=== PATIENT | male | born 1985 ===

== ENCOUNTER 2016-09-17 10:34 | Observation (INO) | payer BC ==
[~2016-09-17] VITALS: Ht 182.9 cm; Wt 79.0 kg
[2016-09-17 10:36] VITALS: BP 125/79; PULSE 92; RESP 20; TEMP 97.9; O2SAT 99
[2016-09-17] MEDS ORDERED: SODIUM CHLOR 0.9% 1000 ML INJ 1,000 ML IV SCH (10:55)
[2016-09-17] MEDS ORDERED: SODIUM CHLORIDE 0.9% FLUSH 10 ML FLUSH IV FLUSH PRN ×2 (11:00→15:30)
--- NOTE | 2016-09-17 11:10 | PD ---
HPI Chief Complaint: Abdominal Pain Time Seen by Provider: 10:55 Travel History International Travel<30 days: No Contact w/Intl Traveler<30days: No Traveled to known affect area: No History of Present Illness HPI This is a 31-year-old male with no significant past medical history, presents today with complaints of abdominal pain 24 hours. The patient reports it started in his epigastric area and now is radiating into his right lower quadrant. He reports significant pain with flexion of his hip. He also reports that the seatbelt was extremely uncomfortable when he was driving and today. He denies any fevers but states that he has had sweats. He also reports nausea with no vomiting. He presents with concerns that he is having an appendicitis. He does give history that his urine is darker and stronger smelling over the last 24 hours. He denies any dysuria. He denies any penile discharge. He denies any testicle pain. There is no reported flank pain. PFSH Past Medical History Medical History: Denies Significant Hx Past Surgical History Oral Surgery: Yes (wisdom teeth removed) Social History Alcohol Use: Yes (occasional) Tobacco Use: No Substance Use: Yes (marijuana, last smoked 1 month ago) Allergies-Medications (Allergen,Severity, Reaction): Coded Allergies: No Known Allergies (Unverified , 09/17/16) Reported Meds & Prescriptions Reported Meds & Active Scripts Active No Active Prescriptions or Reported Medications Review of Systems Except as stated in HPI: all other systems reviewed are Neg General / Constitutional: Positive: Fever, No: Chills HENT: No: Headaches, Neck Pain Cardiovascular: No: Chest Pain or Discomfort, Palpitations Respiratory: No: Cough, Shortness of Breath Gastrointestinal: Positive: Nausea, Abdominal Pain (right lower quadrant), No : Vomiting Genitourinary: Positive: Other (darker urine than normal), No: Frequency, Dysuria Musculoskeletal: No: Myalgias, Weakness Neurologic: No: Weakness, Dizziness, Headache Physical Exam Narrative GENERAL: Well-nourished, well-developed patient. SKIN: Focused skin assessment warm/dry. HEAD: Normocephalic/atraumatic. EYES: No scleral icterus. No injection or drainage. NECK: Supple, trachea midline. CARDIOVASCULAR: Regular rate and rhythm without murmurs, gallops, or rubs. RESPIRATORY: Breath sounds equal bilaterally. No accessory muscle use. GASTROINTESTINAL: Abdomen soft, nondistended. The patient has tenderness to palpation in his right lower quadrant. There is voluntary guarding. No rebound. BACK: Nontender without obvious deformity. No CVA tenderness. NEUROLOGICAL: Awake and alert. Cranial nerves II through XII intact. Motor grossly within normal limits. Five out of 5 muscle strength in all muscle groups. Normal speech. Data Data Last Documented VS Vital Signs Date Time Temp Pulse Resp B/P Pulse Ox O2 Delivery O2 Flow Rate FiO2 09/17/16 11:21 18 97 Room Air 09/17/16 10:36 97.9 92 125/79 Orders Complete Blood Count With Diff (09/17/16 10:55) Comprehensive Metabolic Panel (09/17/16 10:55) Lipase (09/17/16 10:55) Urinalysis - C+S If Indicated (09/17/16 10:55) Ct Abd/Pel W Iv Contrast(Rout) (09/17/16 10:55) Iv Access Insert/Monitor (09/17/16 10:55) Ecg Monitoring (09/17/16 10:55) Oximetry (09/17/16 10:55) Sodium Chlor 0.9% 1000 Ml Inj (Ns 1000 M (09/17/16 10:55) Sodium Chloride 0.9% Flush (Ns Flush) (09/17/16 11:00) Oral Contrast - Adult (09/17/16 11:11) Diatrizoate Liq ( Gastrobillie Liq) (09/17/16 11:24) Iohexol 350 Inj (Omnipaque 350 Inj) (09/17/16 13:16) Ceftriaxone Inj (Rocephin Inj) (09/17/16 14:15) Metronidazole 500 Mg Inj (Flagyl 500 Mg (09/17/16 14:15) ^ Consent (09/17/16 14:05) Labs Laboratory Tests Test 09/17/16 09/17/16 11:03 12:05 White Blood Count 12.1 TH/MM3 Red Blood Count 4.87 MIL/MM3 Hemoglobin 15.6 GM/DL Hematocrit 44.5 % Mean Corpuscular Volume 91.2 FL Mean Corpuscular Hemoglobin 31.9 PG Mean Corpuscular Hemoglobin 35.0 % Concent Red Cell Distribution Width 13.0 % Platelet Count 173 TH/MM3 Mean Platelet Volume 8.3 FL Neutrophils (%) (Auto) 77.9 % Lymphocytes (%) (Auto) 11.5 % Monocytes (%) (Auto) 9.3 % Eosinophils (%) (Auto) 1.2 % Basophils (%) (Auto) 0.1 % Neutrophils # (Auto) 9.4 TH/MM3 Lymphocytes # (Auto) 1.4 TH/MM3 Monocytes # (Auto) 1.1 TH/MM3 Eosinophils # (Auto) 0.1 TH/MM3 Basophils # (Auto) 0.0 TH/MM3 CBC Comment DIFF FINAL Differential Comment Sodium Level 139 MEQ/L Potassium Level 3.5 MEQ/L Chloride Level 101 MEQ/L Carbon Dioxide Level 28.8 MEQ/L Anion Gap 9 MEQ/L Blood Urea Nitrogen 14 MG/DL Creatinine 1.00 MG/DL Estimat Glomerular Filtration 86 ML/MIN Rate Random Glucose 94 MG/DL Calcium Level 9.7 MG/DL Total Bilirubin 0.8 MG/DL Aspartate Amino Transf 25 U/L (AST/SGOT) Alanine Aminotransferase 35 U/L (ALT/SGPT) Alkaline Phosphatase 52 U/L Total Protein 7.8 GM/DL Albumin 4.5 GM/DL Lipase 147 U/L Urine Color COLORLESS Urine Turbidity CLEAR Urine pH 6.5 Urine Specific [place] 1.002 Urine Protein NEG mg/dL Urine Glucose (UA) NEG mg/dL Urine Ketones NEG mg/dL Urine Occult Blood TRACE Urine Nitrite NEG Urine Bilirubin NEG Urine Urobilinogen LESS THAN 2.0 MG/DL Urine Leukocyte Esterase NEG Urine RBC 1 /hpf Urine WBC LESS THAN 1 /hpf Microscopic Urinalysis Comment CULT NOT INDICATED MDM Medical Decision Making Medical Screen Exam Complete: Yes Emergency Medical Condition: Yes Differential Diagnosis Acute appendicitis versus diverticulitis versus cystitis Narrative Course 31-year-old male presents today with complaints of right lower quadrant pain. Patient states it started in the epigastric area and is rotated down to his right lower quadrant. The patient's white count was slightly elevated at 12.1. CT scan of the and pelvis shows an acute inflamed appendix. A call out to Dr. Nair, who will take him to the operating room. He's been started on Rocephin and Flagyl. He is nothing by mouth last ate at 540 this morning. Diagnosis Primary Impression: Acute appendicitis Scripts No Active Prescriptions or Reported Meds Jarrod Del Rosario MD Sep 17, 2016 11:10
[2016-09-17 11:21] VITALS: RESP 18; O2SAT 97
[2016-09-17] MEDS ORDERED: DIATRIZOATE MEGLUM/DIATRIZOATE SOD 9 ML CUP ONE (11:24)
[2016-09-17 11:26] LABS: AUTOMATED NEUTROPHIL # 9.4 TH/MM3 (1.8-7.7); BASOPHIL % 0.1 % (0.0-2.0); EOSINOPHIL # 0.1 TH/MM3 (0-0.4); EOSINOPHIL % 1.2 % (0.0-4.0); HEMATOCRIT 44.5 % (39.0-51.0); HEMO FLAGS DIFF FINAL; LYMPH % 11.5 % (9.0-44.0); LYMPHOCYTE # 1.4 TH/MM3 (1.0-4.8); MEAN CELL VOLUME 91.2 FL (80.0-100.0); MEAN CORPUSCULAR HEMOGLOBIN 31.9 PG (27.0-34.0); MONO % 9.3 % (0.0-8.0); NEUT % 77.9 % (16.0-70.0); PLATELET COUNT 173 TH/MM3 (150-450); RED BLOOD COUNT 4.87 MIL/MM3 (4.50-5.90); WHITE BLOOD COUNT 12.1 TH/MM3 (4.0-11.0)
[2016-09-17] MEDS ORDERED: LACTATED RINGER'S 1000 ML INJ 1,000 ML IV ONE (12:00)
[2016-09-17] MEDS ORDERED: NEOSTIGMINE 3 MG/3 ML SYR IV ONE (12:00)
[2016-09-17] MEDS ORDERED: ONDANSETRON HCL 4 MG/2 ML VIAL IV PUSH ONE (12:00)
[2016-09-17] MEDS ORDERED: PROPOFOL 200 MG/20 ML AMP IV ONE (12:00)
[2016-09-17 12:03] LABS: ANION GAP 9 MEQ/L (5-15); AST (GOT) 25 U/L (15-37); BICARBONATE 28.8 MEQ/L (21.0-32.0); BLOOD UREA NITROGEN 14 MG/DL (7-18); CHLORIDE 101 MEQ/L (98-107); GLOMERULAR FILTRATION RATE 86 ML/MIN (>89); POTASSIUM 3.5 MEQ/L (3.5-5.1); SODIUM (NA) 139 MEQ/L (136-145)
[2016-09-17 12:07] LABS: ALKALINE PHOSPHATASE 52 U/L (45-117); ALT (GPT) 35 U/L (12-78); TOTAL BILIRUBIN ADULT 0.8 MG/DL (0.2-1.0)
[2016-09-17 12:32] LABS: BLOOD, URINE TRACE (NEG); GLUCOSE,URINE NEG (NEG); KETONE, URINE NEG (NEG); NITRITE,URINE NEG (NEG); PH, URINE 6.5 (5.0-8.5); URINE COLOR COLORLESS (YELLW/STRAW)
[2016-09-17 12:41] LABS: COMMENT (UR) CULT NOT INDICATED; CULTURE IF INDICATED CULT NOT INDICATED
[2016-09-17] MEDS ORDERED: IOHEXOL 350 MG/ML 10 ML VIAL (for RAD DIAG) IV ONE (13:16)
--- NOTE | 2016-09-17 13:46 | RADRPT ---
EXAM DATE/TIME: 09/17/2016 13:18 [facility] COMPARISON: No previous studies available for comparison. INDICATIONS : RLQ abdominal pain for 1 day. IV CONTRAST: 94 cc Omnipaque 350 (iohexol) IV ORAL CONTRAST: Prescribed oral contrast ingested. RADIATION DOSE: 6.50 CTDIvol (mGy) MEDICAL HISTORY : None SURGICAL HISTORY : None. ENCOUNTER: Initial ACUITY: 1 day PAIN SCALE: 6/10 LOCATION: Right Abdomen/pelvis TECHNIQUE: Volumetric scanning of the abdomen and pelvis was performed. Using automated exposure control and ad justment of the mA and/or kV according to patient size, radiation dose was kept as low as reasonably achievable to obtain optimal diagnostic quality images. FINDINGS: The limited portion of the lung base visualized is clear. The appearance of the liver, spleen, pancreas, adrenal glands and kidneys is within normal limits. There is no retroperitoneal lymphadenopathy. No free air or free fluid is identified. The examination demonstrates a dilated, inflamed, fluid-filled appendix in the right lower quadrant c onsistent with acute appendicitis. No free air or abscess is seen. There is no free fluid within the pelvis. No iliac or inguinal adenopathy is seen. The visualized bony structures are intact. CONCLUSION: 1. Dilated, inflamed appendix in the right lower quadrant most consistent with acute appendicitis. No focal abscess or free air identified. Ld Quiroz MD on September 17, 2016 at 13:42 Board Certified Radiologist. This report was verified electronically.
[2016-09-17] MEDS ORDERED: cefTRIAXone INJ 1,000 MG in SODIUM CHLORIDE 0.9% INJ 100 ML IV ONE (14:15)
[2016-09-17] MEDS ORDERED: metroNIDAZOLE 500 MG INJ 100 ML IV ONE (14:15)
[2016-09-17] MEDS ORDERED: BUPIVACAINE/EPINEPHRINE 0.5% PF 30 ML VIAL ONE (14:30)
[2016-09-17] MEDS ORDERED: MIDAZOLAM HCL 2 MG/2 ML VIAL ONE (14:45)
[2016-09-17] MEDS ORDERED: DEXAMETHASONE SOD PHOS 4 MG/ML VIAL ONE (14:46)
[2016-09-17] MEDS ORDERED: FAMOTIDINE 20 MG/2 ML VIAL ONE (14:46)
[2016-09-17] MEDS ORDERED: ACETAMINOPHEN 1000 MG/100 ML VIAL IV ONE (15:09)
[2016-09-17] MEDS ORDERED: APREPITANT 40 MG CAP ONE (15:09)
[2016-09-17] MEDS ORDERED: SCOPOLAMINE 1.5 MG PATCH ONE (15:13)
[2016-09-17] MEDS ORDERED: Post-op Orders (for Pharmacy) MISC XX ONE (15:30)
[2016-09-17] MEDS ORDERED: ONDANSETRON HCL 4 MG/2 ML VIAL IV PRN (15:30)
[2016-09-17] MEDS ORDERED: ACETAMINOPHEN/HYDROcodone 325 MG/5 MG TAB PO PRN ×2 (15:30)
[2016-09-17] MEDS ORDERED: HYDROmorphone HCL PF 1 MG/ML VIAL IV PRN (15:30)
--- NOTE | 2016-09-17 15:34 | HHI.PR ---
Immediate Post Op Note Procedure Date: Sep 17, 2016 Pre Op Diagnosis: acute appendicitis Post Op Diagnosis: same Surgeon: Salvatore Nair MD Senior Software Systems Engineer(s): see or sheet Procedure: lap appy Findings: distended appendix Complications: none Specimen(s) removed: appendix Estimated blood loss: 5cc Anesthesia: General Drains: None Patient to: PACU Patient Condition: Good Salvatore Nair MD Sep 17, 2016 15:34
[2016-09-17] MEDS ORDERED: ceFAZolin 2 GM PREMIX 50 ML ONE (15:37)
[2016-09-17] MEDS: LACTATED RINGER'S 1000 ML INJ 1,000 ML IV SCH ×2 (16:00→23:45)
[2016-09-17] MEDS ORDERED: *MEPERIDINE 25 MG INJ VIAL PERIprocedural Use ONLY ONE (16:50)
[2016-09-17] MEDS ORDERED: fentaNYL CITRATE 250 MCG/5 ML AMP ONE (16:57)
[2016-09-17] MEDS ORDERED: *morphine SULFATE 8 MG/ML PERIprocedure ONLY ONE (16:59)
[2016-09-17] MEDS ORDERED: DO NOT ADM ANY ANTICOAGULANT DRUGS PRN (17:30)
[2016-09-17 18:10] VITALS: BP 105/57; PULSE 82; RESP 17; TEMP 96.9; O2SAT 95
[2016-09-17 20:00] VITALS: BP 106/58; PULSE 65; RESP 18; TEMP 96.6; O2SAT 95
[2016-09-17] MEDS: DOCUSATE SODIUM 100 MG CAP PO SCH (20:03)
[2016-09-17] MEDS: SODIUM CHLORIDE 0.9% FLUSH 10 ML FLUSH IV FLUSH SCH (20:03)
[2016-09-17 20:47] VITALS: O2SAT 100
--- NOTE | 2016-09-17 22:15 | MH ---
cc: DANI RUIZ MD DATE OF ADMISSION 09/17/2016 CHIEF COMPLAINT Right lower quadrant abdominal pain, appendicitis. HISTORY OF PRESENT ILLNESS The patient is a 31-year-old male who presents with complaints of right lower quadrant pain. He states the pain started approximately 24 hours ago. He notes that it started at 5 a.m. and continued to get worse. He tried to sleep but with significant increase in pain and night sweats and nausea. He states that the pain is sharp, it was initially epigastric area and radiated down the right lower quadrant. He has never had pain quite as severe as this before. He describes it as a 9/10, it is currently a 7/10, better with lying still and worse with movement. He came to the emergency department for further evaluation and workup with CT scan findings of concern for acute, thickened appendicitis. Also with a leukocytosis. Therefore surgery was consulted for further evaluation. On my exam the patient is lying down. He states that the pain is still significant and severe, some relief with the pain medications. He denies any previous surgeries. He denies any diarrhea, constipation. PAST MEDICAL HISTORY Denies any current medical history. PAST SURGICAL HISTORY [place] teeth. SOCIAL HISTORY Occasional ethyl alcohol. Denies smoking. Occasional THC. ALLERGIES NO KNOWN DRUG ALLERGIES. MEDICATIONS See EMR. FAMILY HISTORY Denies diabetes, hypertension or cancers. REVIEW OF SYSTEMS GENERAL: Complains of chills, subjective fevers. HEENT: Denies eye pain, ear pain or headaches. CARDIOVASCULAR: Denies chest pain or palpitations. RESPIRATORY: Denies cough or wheeze. GASTROINTESTINAL: Complains of nausea, abdominal pain. Denies vomiting. GENITOURINARY: Denies dysuria, hematuria. MUSCULOSKELETAL: Denies arthralgia, myalgias. NEUROLOGIC: Denies numbness, tingling or headache. ENDOCRINE: Denies polyuria, polydipsia. INTEGUMENT: Denies skin lesions or masses. PHYSICAL EXAMINATION GENERAL: The patient in no acute distress. VITAL SIGNS: Temperature 97.9, pulse 92, respiration 18, blood pressure 125/79, pulse ox 97% on room air. HEENT: Pupils equal, round, reactive. No scleral icterus. NECK: Supple. Trachea midline. CARDIOVASCULAR: Regular rate and rhythm. S1-S2. LUNGS: Bilateral breath sounds. No wheeze. ABDOMEN: Soft, positive tenderness to palpation in the right lower quadrant. Minimal guarding. No rebound. BACK: Nontender. No step-offs. NEUROLOGIC: GCS of 15. Alert and oriented times four. SKIN: No obvious masses or lesions. PSYCHIATRIC: Good insight. Good judgment. LABORATORY AND DIAGNOSTIC DATA WBC 12.1, hemoglobin 15.6, hematocrit 24.5, platelets 173. Sodium 139, potassium 3.5, chloride 101, CO2 28, BUN is 14, creatinine 1.0. Calcium is 9.7. T bili 0.8, AST 35, ALT 25, alkaline phos 52. IMAGING CT scan reviewed by myself, evidence of thickened, indurated dilated appendix stranding with irritation. No evidence of free air. Otherwise unremarkable. ASSESSMENT The patient a 31-year-old male right lower quadrant pain, concern for acute appendicitis. PLAN Full clinical, radiologic, laboratory workup the patient with above-named complaints including acute appendicitis. At this point recommend IV antibiotics, n.p.o., pain control. We will take the patient emergently to the OR for operative intervention. The plan discussed in detail with the patient including risks, benefits and alternatives. The patient states understanding of this, at bedside and agrees with plan. We will plan for a laparoscopic appendectomy. MD KATHY Lane/ALBA /9:43 PM /9:53 PM MTDD
[2016-09-17] MEDS: metroNIDAZOLE 500 MG INJ 100 ML IV SCH (23:45)
[2016-09-18] VITALS: BP 106/58; PULSE 65; RESP 18; TEMP 96.6; O2SAT 95
[2016-09-18 04:00] VITALS: BP 101/58; PULSE 68; RESP 16; TEMP 97.4; O2SAT 98
[2016-09-18 04:36] LABS: AUTOMATED NEUTROPHIL # 8.9 TH/MM3 (1.8-7.7); BASOPHIL % 0.3 % (0.0-2.0); EOSINOPHIL # 0.1 TH/MM3 (0-0.4); EOSINOPHIL % 0.5 % (0.0-4.0); HEMATOCRIT 40.2 % (39.0-51.0); HEMO FLAGS DIFF FINAL; LYMPH % 8.9 % (9.0-44.0); MEAN CELL VOLUME 92.2 FL (80.0-100.0); MEAN CORPUSCULAR HEMOGLOBIN 31.4 PG (27.0-34.0); MONO % 8.3 % (0.0-8.0); PLATELET COUNT 158 TH/MM3 (150-450); RED BLOOD COUNT 4.36 MIL/MM3 (4.50-5.90); RED CELL DISTRIBUTION WIDTH 12.9 % (11.6-17.2); WHITE BLOOD COUNT 10.8 TH/MM3 (4.0-11.0)
[2016-09-18 05:01] LABS: POTASSIUM 4.2 MEQ/L (3.5-5.1)
[2016-09-18 08:00] VITALS: BP 115/61; PULSE 73; RESP 18; TEMP 97.5; O2SAT 98
[2016-09-18] MEDS: SODIUM CHLORIDE 0.9% FLUSH 10 ML FLUSH IV FLUSH SCH ×2 (09:00→09:11)
[2016-09-18] MEDS: metroNIDAZOLE 500 MG INJ 100 ML IV SCH (09:10)
[2016-09-18] MEDS: DOCUSATE SODIUM 100 MG CAP PO SCH (09:10)
[2016-09-18] MEDS ORDERED: HYDR-3516 PO (10:12)
[2016-09-18 10:50] VITALS: O2SAT 98
[2016-09-18] MEDS: LACTATED RINGER'S 1000 ML INJ 1,000 ML IV SCH (12:00)
--- NOTE | 2016-09-19 16:35 | MP ---
cc: DANI NAIR MD DATE OF SURGERY: 09/17/2016. PREOPERATIVE DIAGNOSIS: Acute appendicitis. POSTOPERATIVE DIAGNOSIS: Acute appendicitis. OPERATIVE PROCEDURE PERFORMED: Laparoscopic appendectomy. SURGEON: Dr. Dani Nair. AIRWAYS CONTROL SPECIALIST: See OR sheet. ANESTHESIA: GETA. IV FLUIDS: 1100 cc. ESTIMATED BLOOD LOSS: 5 cc. DRAINS None. COMPLICATIONS: None. FINDINGS: Nonperforated distended acutely inflamed appendix with purulent exudate. WOUND CLASSIFICATION: Clean / contaminated INDICATIONS FOR THE PROCEDURE: The patient is 31-year-old male who presented with acute onset of epigastric and right-sided abdominal pain. The pain progressed to the right lower quadrant over the next 24 hours. The patient noted subjective fevers and chills, was unable to sleep and had significant worsening pain. He came to the emergency department for further evaluation including CT scan showing an acute inflamed appendix; also leukocytosis. Decision was made for operative intervention including laparoscopic appendectomy. This was discussed with the patient's at bedside. DESCRIPTION OF THE PROCEDURE IN DETAIL: The patient was taken to the operating suite and placed in supine position. He was prepped and draped in usual sterile fashion after induction of general endotracheal anesthesia. A brief time-out was done stating correct patient, procedure, surgical site and all were in agreement with this. Attention was directed to the umbilicus. Local anesthetic was injected. A stab juju incision was made. The Veress needle was placed and intraabdominal placement confirmed with the saline drop test. The abdomen was insufflated to 15 mm pneumoperitoneum. The Veress needle was changed for a 5-mm trocar endoscope. On cursory inspection, no evidence of injury. The abdomen was noted to be relatively normal. Two other trocars were placed, one 12 mm in the left lower quadrant followed by a 5 mm suprapubic trocar. The patient was placed in Trendelenburg position and planed to the left. Right lower quadrant appendix was noted to be purulent and distended. The appendix was grasped and mobilized using the [place] bovie electrocautery. The appendiceal base was identified and a small window made in the mesoappendix. A 35 Endo ELAN stapler was placed and transected the base of the appendix. The mesoappendix was also transected with two 35 Endo ELAN staplers. The appendix was then placed into the EndoCatch bag and removed through the left lower quadrant trocar. Suction irrigation was used until the fluid was clear. Hemostasis was noted to be appropriate. The abdomen was then desufflated. The trocars were removed. 0 Vicryl was used for fascial suture in [id number] fashion to the left lower quadrant. Local anesthetic injected at all port sites. 4-0 Monocryl used to close the subcuticular incisions. The patient tolerated the procedure well. There were no intraoperative complications. The patient was extubated, taken stable to post-anesthesia care unit. Specimens were appendix sent for pathology. MD KATHY Lane/HEMANTH /5:03 PM /4:25 PM
== END 2016-09-18 13:40 | disposition home or self-care (01) ==
LOC: NEPE 10:34 → NEDA 14:47 → N07A 18:00
PROVIDERS: ADMIT Surgery; ATTEND Surgery
DX: K35.80 Unspecified acute appendicitis (principal)
CPT/HCPCS: 00840; 44970; 74177; 80048; 80053; 81001; 83690; 85025; 88304; 99285; G0378; J0131; J0690; J1100; J2175; J2250; J2270; J2405; J2710; J3010; J7030; J7120; J8501; Q9963; Q9967